=== PATIENT | male | born 1980 | race African-American/Black ===

== ENCOUNTER 2017-03-05 21:57 | Inpatient (IN) | payer SELFPAY ==
[~2017-03-05] VITALS: Ht 175.3 cm; Wt 89.5 kg
[2017-03-05] MEDS ORDERED: OLANZapine ODT 10 MG TAB PO ONE (22:15)
[2017-03-05 22:21] VITALS: BP 158/100; PULSE 96; RESP 18; TEMP 98.3; O2SAT 99
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
[2017-03-05 23:10] LABS: AUTOMATED NEUTROPHIL # 1.6 TH/MM3 (1.8-7.7); BASOPHIL # 0.1 TH/MM3 (0-0.2); BASOPHIL % 1.2 % (0.0-2.0); EOSINOPHIL # 0.3 TH/MM3 (0-0.4); EOSINOPHIL % 6.4 % (0.0-4.0); HEMATOCRIT 44.5 % (39.0-51.0); HEMO FLAGS DIFF FINAL; LYMPHOCYTE # 2.1 TH/MM3 (1.0-4.8); MEAN CELL VOLUME 94.5 FL (80.0-100.0); MEAN CORPUSCULAR HEMOGLOBIN 31.9 PG (27.0-34.0); MEAN CORPUSCULAR HGB CONC 33.8 % (32.0-36.0); MONO % 8.5 % (0.0-8.0); NEUT % 35.9 % (16.0-70.0); PLATELET COUNT 271 TH/MM3 (150-450); RED BLOOD COUNT 4.71 MIL/MM3 (4.50-5.90); RED CELL DISTRIBUTION WIDTH 12.9 % (11.6-17.2); WHITE BLOOD COUNT 4.5 TH/MM3 (4.0-11.0)
[2017-03-05 23:28] LABS: BICARBONATE 28.8 MEQ/L (21.0-32.0); POTASSIUM 3.7 MEQ/L (3.5-5.1)
[2017-03-06 01:34] LABS: AMPHETAMINE, URINE NEG (NEG); BARBITURATES, URINE NEG (NEG); COCAINE, URINE POS (NEG)
[2017-03-06 02:13] VITALS: BP 114/67; PULSE 65; RESP 16; O2SAT 99
[2017-03-06 06:17] VITALS: BP 102/71; PULSE 64; RESP 16; O2SAT 98
[2017-03-06 09:54] VITALS: BP 128/75; PULSE 70; RESP 18
[2017-03-06] MEDS ORDERED: FLUMAZENIL 0.5 MG/5 ML VIAL IV PUSH PRN (10:30)
[2017-03-06] MEDS ORDERED: MAGNESIUM HYDROXIDE SUSP 30 ML CUP PO PRN (10:30)
[2017-03-06] MEDS ORDERED: LORazepam 2 MG/ML VIAL IV PUSH PRN ×4 (10:30)
[2017-03-06] MEDS ORDERED: LORazepam 2 MG TAB PO PRN (10:30)
[2017-03-06] MEDS ORDERED: LORazepam 1 MG TAB PO PRN (10:30)
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
[2017-03-06] MEDS ORDERED: ALUMINUM/MAGNESIUM/SIMETH 30 ML CUP PO PRN (11:00)
[2017-03-06] MEDS ORDERED: diphenhydrAMINE HCL 50 MG CAP PO PRN (11:00)
[2017-03-06] MEDS: ESCITALOPRAM OXALATE 10 MG TAB PO SCH (11:00)
[2017-03-06] MEDS ORDERED: hydrOXYzine HCL 50 MG TAB PO PRN (11:00)
[2017-03-06] MEDS ORDERED: ACETAMINOPHEN 325 MG TAB PO PRN (11:00)
[2017-03-06 12:40] VITALS: BP 124/84; PULSE 84; RESP 16; TEMP 98.2; O2SAT 99
[2017-03-06 22:00] VITALS: BP 144/74; PULSE 68; RESP 16; TEMP 97.6; O2SAT 98
[2017-03-07 06:14] VITALS: BP 125/91; PULSE 80; RESP 17; TEMP 97.7; O2SAT 97
[2017-03-07] MEDS: ESCITALOPRAM OXALATE 10 MG TAB PO SCH (08:47)
[2017-03-07] MEDS ORDERED: ESCI10TA PO (13:20)
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
== END 2017-03-07 14:25 | disposition home or self-care (01) | DRG 885 ==
LOC: NEPD 21:57 → H260 03-06 10:27 → UNDOADMIN 03-06 10:27 → H260 03-06 12:15
PROVIDERS: ADMIT Psychiatry & Neurology Psychiatry; ATTEND Psychiatry & Neurology Psychiatry
DX: F32.2 Major depressive disorder, single episode, severe without psychotic features (principal); F29 Unspecified psychosis not due to a substance or known physiological condition; F14.10 Cocaine abuse, uncomplicated; F10.129 Alcohol abuse with intoxication, unspecified; F12.10 Cannabis abuse, uncomplicated; Y90.8 Blood alcohol level of 240 mg/100 ml or more; Z79.899 Other long term (current) drug therapy; Z72.0 Tobacco use
CPT/HCPCS: 80048; 80307; 85025